=== PATIENT | male | born 1975 | race Caucasian/White ===

== ENCOUNTER 2024-04-21 09:59 | Inpatient (IN) | payer BC ==
[2024-04-21] VITALS (7 sets, daily range): BP systolic 145–161; BP diastolic 80–85; PULSE 66–74; TEMP 98–98.4
[~2024-04-21] VITALS: Ht 172.7 cm; Wt 197.9 kg
[~2024-04-21 09:59] MED LIST: 00186-0370-20 IH; AMOXICILLIN 50500 MG PO; APRESOLINE50 MG PO; COREG 6.256.25 MG/TA PO; DOXYCYCLINE HY100 MG PO; FLONASE NASAL S16 GM NS; HCTZ 25MG TAB25 MG PO; NO HOME MEDICATIONS; OMNICEF 300MG300 MG PO; PREDNISONE10 MG PO; PREDNISONE50 MG PO; PRINIVIL40 MG PO; TESSALON P100 MG/CAP PO; TOPROL XL 25MG25 MG PO; TOPROL XL 50MG50 MG PO; VENTOLIN0.09 MG IH; ZESTRIL 20MG TA20 MG PO; ZITHROMAX TRI-500 MG PO; ZYRTEC 10MG10 MG PO
[2024-04-21 11:04] LABS: COLLECTION METHOD CLEAN CATCH
[2024-04-21 11:20] LABS: BASO # 0.1 K/mm3 (0.0-0.2); BASO % 0.6 % (0.0-2.0); EOS # 0.3 K/mm3 (0.0-0.7); EOS % 2.6 % (0.0-4.0); GRAN # 8.7 K/mm3 (1.4-6.5); LYMPH # 0.9 K/mm3 (1.2-3.4); MEAN CELL VOLUME 67 fl (80.0-100.0); MEAN CORPUSCULAR HGB CONC 25 g/dl (33.0-37.0); MEAN PLATELET VOLUME 7.9 fl (7.4-10.4); MONO # 0.9 K/mm3 (0.1-0.6); MONO % 8.2 % (1.7-9.3); PLATELET COUNT 251 K/mm3 (130-400); RED BLOOD COUNT 4.47 M/mm3 (4.20-5.60); REDCELL DISTRIBUTION WIDTH-CV 23.8 % (11.5-14.5)
[2024-04-21 11:26] LABS: HEMOGLOBIN 7.5 g/dl (13.5-18.0); MEAN CORPUSCULAR HEMOGLOBIN 17 pg (27-31)
[2024-04-21 11:27] LABS: PH 5.5 (5.0-8.5); URINE APPEARANCE CLEAR (CLEAR/HAZY); URINE BLOOD NEGATIVE (NEGATIVE); URINE COLOR YELLOW (YELLOW); URINE GLUCOSE NEGATIVE (NEGATIVE); URINE KETONE NEGATIVE (NEGATIVE); URINE NITRATE NEGATIVE (NEGATIVE); URINE PROTEIN(semi-quant) TRACE (NEGATIVE)
[2024-04-21 11:28] LABS: ALBUMIN 3.5 g/dL (3.5-5.0); BILIRUBIN,TOTAL 1.9 mg/dL (0.2-1.2); CALCIUM 8.7 mg/dL (8.4-10.2); CREATININE, serum 1.14 mg/dL (0.72-1.25); POTASSIUM 3.1 mEq/L (3.5-4.5); TOTAL PROTEIN 7.3 g/dl (6.2-8.1)
[2024-04-21] MEDS ORDERED: Furosemide 100 MG/10 ML VIAL IV ONE (12:00)
[2024-04-21] MEDS ORDERED: AMOXICILLIN 8751 TAB PO (12:34)
[2024-04-21] MEDS ORDERED: LASIX 20MG TABL20 MG PO (12:35)
[2024-04-21] MEDS ORDERED: MOBIC15 MG PO (12:35)
[2024-04-21] MEDS ORDERED: NORVASC 5MG5 MG/TAB PO (12:35)
[2024-04-21] MEDS ORDERED: TYLENOL 500MG500 MG PO (12:38)
[2024-04-21] MEDS ORDERED: MUCINEX 60600 MG/TA1 PO (12:38)
[2024-04-21] MEDS ORDERED: Polyethylene Glycol 3350 17 GM PDS PO PRN (14:00)
[2024-04-21] MEDS ORDERED: Ondansetron 4 MG/2 ML VIAL IV PRN (14:00)
[2024-04-21] MEDS ORDERED: Acetaminophen 500 MG TAB PO PRN (14:00)
--- NOTE | 2024-04-21 14:40 | NUR ---
patient alert and oriented x4. patient on 2L 02/oxymask. Patient has swollen scrotum skin is dried/flaky. protective moisture ointment placed on it. Patient voided 300mls yellow clear urine. patient has generalized swelling. patient reports discomfort with positions to scrotum area. Patient IV on left antecubital c/d/i. Patient has acne/dark spots gaona on back, groin and panus area dark and stretchmarks. patient call light within reach. bed at lowest position.
[2024-04-21] MEDS ORDERED: Formoterol 20 MCG,Budesonide 0.5 MG IH SCH (19:00)
--- NOTE | 2024-04-21 20:50 | NUR ---
Patient resting in bed. Rates his pain at 2/10, states that is tolerable for him. Denies any needs at this time. Assessment complete. IV in right AC flushes easily without complications. Call light and personal items in reach. Bed in low position.
[2024-04-21] MEDS ORDERED: Patient's Own Medication Item IH PRN (21:00)
[2024-04-21] MEDS ORDERED: hydrALAZINE 25 MG TAB PO SCH (21:00)
[2024-04-22] VITALS (11 sets, daily range): BP systolic 124–165; BP diastolic 79–94; PULSE 64–79; TEMP 97.6–98.2
--- NOTE | 2024-04-22 01:30 | NUR ---
Spoke with hospitalsit Lakeshia about patient metoprolol is usually taken in the morning and here it is scheduled for evening. Recieved orders to change it to be taken in the morning per home regimen.
--- NOTE | 2024-04-22 05:30 | NUR ---
Patient up to bench. Rates pain at 3/10, prn pain meds given. Denies any needs this morning. States "I don't feel like the lasix are working how they're supposed to. My scrotum hasn't gotten any better." Call light and personal items in reach. Bed in low position.
[2024-04-22 07:02] LABS: BASO # 0.1 K/mm3 (0.0-0.2); BASO % 0.6 % (0.0-2.0); EOS # 0.3 K/mm3 (0.0-0.7); EOS % 3.1 % (0.0-4.0); GRAN # 7.2 K/mm3 (1.4-6.5); GRAN % 78.2 % (42.2-75.2); LYMPH # 0.7 K/mm3 (1.2-3.4); LYMPH % 7.9 % (20.0-51.0); MEAN CELL VOLUME 68 fl (80.0-100.0); MEAN CORPUSCULAR HGB CONC 25 g/dl (33.0-37.0); MEAN PLATELET VOLUME 8.3 fl (7.4-10.4); MONO # 0.9 K/mm3 (0.1-0.6); MONO % 9.2 % (1.7-9.3); PLATELET COUNT 239 K/mm3 (130-400); RED BLOOD COUNT 4.38 M/mm3 (4.20-5.60); REDCELL DISTRIBUTION WIDTH-CV 23.5 % (11.5-14.5)
[2024-04-22 07:06] LABS: HEMATOCRIT 29.7 % (42.0-52.0); HEMOGLOBIN 7.3 g/dl (13.5-18.0); MEAN CORPUSCULAR HEMOGLOBIN 17 pg (27-31)
[2024-04-22 08:15] LABS: CALCIUM 8.8 mg/dL (8.4-10.2); CREATININE, serum 1.19 mg/dL (0.72-1.25); MAGNESIUM 1.4 mg/dL (1.6-2.6); POTASSIUM 3.3 mEq/L (3.5-4.5)
--- NOTE | 2024-04-22 08:49 | NUR ---
PT SITTING ON BENCH UPON ENTERING. ASSSESSMENT DONE, MEDS GIVEN PER ORDER. PT REPORTS INTERMITTENT SCROTUM PAIN WITH MOVEMENT THAT IS CURRENTLY TOLERABLE, UNABLE TO GET PRN AT THIS TIME. PT ON 2L NASAL CANNULA. PT DENIES NEEDS. ULTRASOUND AT BEDSIDE FOR ECHO. PT UNABLE TO LAY IN BED AND POSITIONED ON SIDE OF BED FOR IMAGING WITH ASSISTANCE OF PCT. PT DENIES NEEDS. BED IN LOWEST POSITION, CALL LIGHT IN REACH
[2024-04-22] MEDS ORDERED: hydroCHLOROthiazide 25 MG TAB PO SCH (09:00)
[2024-04-22] MEDS ORDERED: Cetirizine 10 MG TAB PO SCH (09:00)
[2024-04-22] MEDS ORDERED: amLODIPine 5 MG TAB PO SCH (09:00)
--- NOTE | 2024-04-22 09:04 | NUR ---
welfare eligibility worker met with pt and his , Edna [phone] to discuss discharge planning. reports they live together in [place]. Pt sees Dr. Matthews for PCP needs and obtains medications from [facility] in with no difficulties. expresses anxieties if there is difficulty "after this hospital stay." SW encouraged her to use [facility] and inform HANNY Amaya upon discharge if they have further questions. She states Ashley does use [facility] for them. She reports pt is independent with ADLS and uses no DME, but is working on getting a CPAP following a sleep study. He does not have a DPOA-HC and is agreeable to being NOK. Pt reports no concerns with mobility and falls. He verified his insurance as [employer]. Discharge Plan: home
[2024-04-22] MEDS ORDERED: Potassium Bicarbonate/Citrate 20 MEQ Effervescent TAB PO SCH (10:15)
[2024-04-22] MEDS ORDERED: Furosemide 100 MG/10 ML VIAL IV ONE ×2 (10:15→14:45)
[2024-04-22] MEDS ORDERED: Furosemide 40 MG/4 ML VIAL IV ONE (10:15)
[2024-04-22] MEDS ORDERED: *Potassium Replacement Protocol MC SCH (10:15)
[2024-04-22] MEDS ORDERED: Magnesium Sulfate 4 GM/50 ML IV SOLN IV ONE (10:30)
[2024-04-22] MEDS ORDERED: Chlorhexidine 0.12% Oral Rinse 480 ML BOTTLE MM SCH (10:30)
[2024-04-22] MEDS ORDERED: AlOH3/diphen/Lidoc/MgOH2/Simet Oral Susp 10 ML UD Syringe PO SCH (12:00)
--- NOTE | 2024-04-22 19:17 | NUR ---
REPORT GIVEN TO ESTELA, RN
--- NOTE | 2024-04-22 20:30 | NUR ---
CALL PLACED TO [facility]. PATIENT HAS PROFOUND ANASCARA/GENERALIZED EDEMA AND SCROTUM IS SEVERELY EDEMENOUS. ACCURATE IXOs DIFFICULTY TO OBTAIN D/T PATIENT EXCORITATION AND DISCOMFORT. ESAU PLACED 16FR CUDET JEFFERSON AFTER MANY ATTEMPS. JEFFERSON IS PATENT AND DRAINING DARK YELLOW URINE. PATIENT CONTINUES TO COMPLAIN OF DISCOMFORT. TORB FOR LIDOCAINE PATCH AND 9MG MELATONIN GIVEN BY [facility]IST[facility]. PATIENT EDUCATED ON FLUID RESTRICTION. VS ARE WNL. CALL LIGHT WITHIN REACH.
--- NOTE | 2024-04-22 20:30 | NUR ---
PATIENT PLACED IN BARIATRIC BED WITH TRAPEZE BAR.
[2024-04-22] MEDS ORDERED: Lidocaine 4% Topical Patch TP SCH (23:19)
[2024-04-22] MEDS ORDERED: Melatonin 3 MG TAB PO SCH (23:20)
[2024-04-23] VITALS (12 sets, daily range): BP systolic 114–147; BP diastolic 59–84; PULSE 70–83; TEMP 97.6–98.3
--- NOTE | 2024-04-23 02:30 | NUR ---
CALL PLACED TO [facility]IST[facility]. PATIENT EXPERIENCING ANXIETY, STATES, "I FEEL ALL CONSTRAINED, CLAUSTROPHOBIC LIKE. I'M FREAKING OUT." PATIENT IS CURRENTLY NUDE, HAVING TAKEN ALL HIS CLOTHES OFF. VS ARE WNL. TORB FOR 0.5MG PO ONE TIME DOSE GIVEN.
[2024-04-23] MEDS ORDERED: LORazepam 0.5 MG TAB PO ONE (02:45)
--- NOTE | 2024-04-23 04:42 | NUR ---
CALL PLACED TO RT-BRE. PATIENT DESATED TO 86% ON 2L NC. TITRATED O2 UP TO 4L NOW 02 SAT 93%. RT TO ASSESS BEDSIDE.
--- NOTE | 2024-04-23 04:46 | NUR ---
RT ASSESSED PATIENT. O2 97% ON 4L, TITRATED BACK DOWN TO 1L. PATIENT HAS SUSPECTED MERARY, BUT HAS NOT BEEN ABLE TO MAKE IT TO SLEEP STUDY.
[2024-04-23 06:33] LABS: BASO # 0.1 K/mm3 (0.0-0.2); BASO % 0.5 % (0.0-2.0); EOS # 0.2 K/mm3 (0.0-0.7); EOS % 1.3 % (0.0-4.0); GRAN # 10.1 K/mm3 (1.4-6.5); LYMPH # 0.7 K/mm3 (1.2-3.4); LYMPH % 6.2 % (20.0-51.0); MEAN CELL VOLUME 68 fl (80.0-100.0); MEAN CORPUSCULAR HGB CONC 25 g/dl (33.0-37.0); MEAN PLATELET VOLUME 8.3 fl (7.4-10.4); MONO # 0.9 K/mm3 (0.1-0.6); MONO % 7.3 % (1.7-9.3); PLATELET COUNT 227 K/mm3 (130-400); REDCELL DISTRIBUTION WIDTH-CV 23.8 % (11.5-14.5); RETIC # 0.13 M/mm3 (0.02-0.16); RETIC % 2.9 % (0.5-3.52)
[2024-04-23 06:54] LABS: CREATININE, serum 1.13 mg/dL (0.72-1.25); POTASSIUM 3.5 mEq/L (3.5-4.5)
[2024-04-23 07:09] LABS: HEMATOCRIT 29.8 % (42.0-52.0); HEMOGLOBIN 7.5 g/dl (13.5-18.0); MEAN CORPUSCULAR HEMOGLOBIN 17 pg (27-31); RED BLOOD COUNT 4.38 M/mm3 (4.20-5.60)
[2024-04-23] MEDS ORDERED: Potassium Bicarbonate/Citrate 20 MEQ Effervescent TAB PO SCH (08:00)
--- NOTE | 2024-04-23 09:15 | NUR ---
PATIENT ALERT AND ORIENTED X4. PATIENT DROWSY TODAY. DENIES PAIN/ REPORTS GENERALIZED DISCOMFORT AND THAT BED IS NOT COMFORTABLE. ON 4.5L /. JEFFERSON DRAINING TEA COLOR URINE WITH SEDIMENT. SCROTAL AREA REMAINS SWOLLEN AND PANUS AREA. PITTING ON THE ABDOMEN.PATIENT CALL LIGHT WITHIN REACH. AT BEDSIDE. BED TO LOWEST POSITION.
[2024-04-23] MEDS ORDERED: Furosemide 40 MG TAB PO SCH (09:30)
[2024-04-23 09:33] LABS: ARTERIAL BLD GAS O2 SATURATION 89.2 % (92-100); ARTERIAL BLD GAS TCO2 CT 37.8; ARTERIAL BLOOD GAS BASE EXCESS 9.5 (-2-2); ARTERIAL BLOOD GAS HCO3 35.9 meq/L (22-26); ARTERIAL BLOOD GAS PO2 59.1 mmHg (80-100); ARTERIAL BLOOD GAS pH 7.38 (7.35-7.45)
--- NOTE | 2024-04-23 09:50 | NUR ---
ATTEMPTED FULL FACE BIPAP 12/6 25% PT UNABLE TO TOLERATE. WILL TRY NASAL MASK LATER. RN NOTIFIED
[2024-04-23] MEDS ORDERED: Lisinopril 20 MG TAB PO SCH ×2 (11:06→16:00)
--- NOTE | 2024-04-23 16:00 | NUR ---
Patient assisted with repositioning in bed. patient agreeable to elevate the scrotum to ease the pressure and help with the swelling. call light within reach. bed alarm within reach.
--- NOTE | 2024-04-23 20:30 | NUR ---
Initial shift assessment done- alert/oriented, standing at edge of bed with family helping, states just needed his back scratched-- back to bed, Mishra with susanne urine/sediment,, encouraged to elevate scrotum but pt states that increases his back pain, o2 at 1L/nc, denies SOB at this time.
[2024-04-24] VITALS (13 sets, daily range): BP systolic 137–158; BP diastolic 75–101; PULSE 68–80; TEMP 97.7–98.2
--- NOTE | 2024-04-24 00:30 | NUR ---
Pt states his INT is painful, r/ac INT does look red at insertion site - still flushes well but is painful, dc,d. Attempted to start another INT x1-- unable to get, called [facility] JARA and ok to leave out for the night --also pt states he is feeling anxious/panicky again like last night- order obtained for ativan po x1 now.
[2024-04-24] MEDS ORDERED: LORazepam 0.5 MG TAB PO ONE (00:45)
--- NOTE | 2024-04-24 05:53 | NUR ---
Pt has been resting on and off since the Ativan given, at times cannot get comfortable so stands at edge of bed to "stretch" his back- not wearing any clothes/gown, has been taking his p2 cannula on and off, sats have stayed 92% on RA.
[2024-04-24 07:58] LABS: BASO % 0.4 % (0.0-2.0); EOS # 0.2 K/mm3 (0.0-0.7); EOS % 2.4 % (0.0-4.0); GRAN # 7.6 K/mm3 (1.4-6.5); GRAN % 81.9 % (42.2-75.2); LYMPH # 0.7 K/mm3 (1.2-3.4); LYMPH % 7.2 % (20.0-51.0); MEAN CELL VOLUME 68 fl (80.0-100.0); MEAN CORPUSCULAR HGB CONC 24 g/dl (33.0-37.0); MEAN PLATELET VOLUME 8.2 fl (7.4-10.4); MONO # 0.7 K/mm3 (0.1-0.6); MONO % 7.6 % (1.7-9.3); PLATELET COUNT 227 K/mm3 (130-400); REDCELL DISTRIBUTION WIDTH-CV 23.6 % (11.5-14.5)
[2024-04-24 08:01] LABS: HEMATOCRIT 29.2 % (42.0-52.0); HEMOGLOBIN 7.1 g/dl (13.5-18.0); MEAN CORPUSCULAR HEMOGLOBIN 17 pg (27-31)
[2024-04-24 08:08] LABS: CALCIUM 9.8 mg/dL (8.4-10.2); CREATININE, serum 1.05 mg/dL (0.72-1.25); POTASSIUM 3.4 mEq/L (3.5-4.5)
[2024-04-24] MEDS ORDERED: Potassium Bicarbonate/Citrate 20 MEQ Effervescent TAB PO SCH (08:30)
--- NOTE | 2024-04-24 08:30 | NUR ---
UPON ENTERING ROOM PATIENT LAYING NAKED IN BED. PATIENT DENIES PAIN AT THIS TIME. PATIENT HELPED UP FROM BED TO SOFA AREA TO EAT BREAKFAST. JEFFERSON INPLACE DRAINING TEA COLOR URINE.PATIENT HAS NO IV PLACED AT THIS TIME PROVIDER IS AWARE.PATIENT CALL LIGHT WITHIN REACH. BED AT LOWEST POSITION.
--- NOTE | 2024-04-24 11:22 | NUR ---
Laundromat Manager spoke with Hospitalist about ordering PT/OT to assess for any discharge needs.
[2024-04-24] MEDS ORDERED: LORazepam 1 MG TAB PO ONE (16:00)
--- NOTE | 2024-04-24 19:48 | NUR ---
PATIENT RESTING IN BED WITH AT BEDSIDE. REPORTING PAIN IN EPIGASTRIC REGION, 2 TUMS PROVIDED AT THIS TIME. O2 IN USE AT 2L VIA NASAL CANNULA. CALL LIGHT WITIHN REACH. BED IS LOCKED AND IN LOW POSITION.
[2024-04-25] VITALS (7 sets, daily range): BP systolic 137–176; BP diastolic 81–109; PULSE 69–74; TEMP 97.9–98.3
--- NOTE | 2024-04-25 04:39 | NUR ---
INFORMED RT THAT PATIENT'S OXYGEN SATURATION WAS 79%. PATIENT HAS BEEN TAKING HIS OXYGEN ON AND OFF ALL NIGHT. AGAIN ATTEMPTED TO REEDUCATE ON IMPORTANCE OF KEEPING HIS NASAL CANNULA IN PLACE.
--- NOTE | 2024-04-25 05:47 | NUR ---
PT HAS TAKEN CPAP ON AND OFF THROUGHOUT THE NIGHT. RT NOTIFIED AROUND 0445 PT WAS SATTING IN LOW 80'S. UPON ENTERING ROOM PT IS OFF THE CPAP WITH NC IN NOSE. NC IS NOT PLUGGED IN TO O2 DUE TO PT REQUIRING O2 BLEED IN THROUGH CPAP. O2 WYE PLACED IN ROOM AND PT HOOKED BACK UP TO 2L VIA NC.
--- NOTE | 2024-04-25 08:15 | NUR ---
patient alert and oriented x4. patient denies pain at this time. patient nasal canula off, patient re-educated on the importance of compliance with keep on his oxygen nasal canula and the risk of not wearing it. patient verbalized understanding and allowed it to be placed back on. Patient shift assessment completed. patient helped out of bed and assisted to move to window bench to eat breakfast. patient chavira inplace draining yellow urine. patient right ac site red and white/yellow ring around where iv used to be. cleaned and bandaid placed. Patient placed on 2L/nc. call light within reach. bed at lowest position.
[2024-04-25 09:44] LABS: BASO # 0.1 K/mm3 (0.0-0.2); BASO % 0.7 % (0.0-2.0); EOS # 0.3 K/mm3 (0.0-0.7); EOS % 3.2 % (0.0-4.0); GRAN % 78.3 % (42.2-75.2); LYMPH # 0.8 K/mm3 (1.2-3.4); LYMPH % 8.5 % (20.0-51.0); MEAN CELL VOLUME 68 fl (80.0-100.0); MEAN CORPUSCULAR HGB CONC 25 g/dl (33.0-37.0); MEAN PLATELET VOLUME 7.8 fl (7.4-10.4); MONO # 0.8 K/mm3 (0.1-0.6); MONO % 8.7 % (1.7-9.3); PLATELET COUNT 207 K/mm3 (130-400); RED BLOOD COUNT 4.34 M/mm3 (4.20-5.60); REDCELL DISTRIBUTION WIDTH-CV 23.5 % (11.5-14.5)
[2024-04-25 09:53] LABS: HEMATOCRIT 29.4 % (42.0-52.0); HEMOGLOBIN 7.3 g/dl (13.5-18.0); MEAN CORPUSCULAR HEMOGLOBIN 17 pg (27-31)
[2024-04-25] MEDS ORDERED: FLOMAX 0.40.4 MG/CAP PO (10:00)
[2024-04-25] MEDS ORDERED: NORVASC 10MG10 MG PO (10:01)
[2024-04-25] MEDS ORDERED: LASIX 40MG TABL40 MG PO (10:02)
[2024-04-25 10:05] LABS: CALCIUM 9.2 mg/dL (8.4-10.2); CREATININE, serum 1.02 mg/dL (0.72-1.25); MAGNESIUM 1.7 mg/dL (1.6-2.6); POTASSIUM 3.4 mEq/L (3.5-4.5)
[2024-04-25] MEDS ORDERED: amLODIPine 5 MG TAB PO ONE (10:15)
[2024-04-25] MEDS ORDERED: OXYGEN NASAL.CANN ×2 (10:23→12:25)
--- NOTE | 2024-04-25 11:00 | NUR ---
patient chavira catheter removed. patient tolerated it well. pericare provided. call light within reach. bed at lowest position.
--- NOTE | 2024-04-25 12:20 | NUR ---
patient voided. denied pain or difficulty urinating. at bedside. call light within reach, bed at lowest position.
--- NOTE | 2024-04-25 13:20 | NUR ---
patient discharge instructions give. at bedside. patient verbalized understanding. denies questions. patient wanted to speak to provider about IV site spot prior to discharge. provider notified. call light within reach.
[2024-04-25] MEDS ORDERED: DOXYCYCLINE 10100 MG PO (13:42)
--- NOTE | 2024-04-25 14:26 | NUR ---
patient escorted out of unit by PCT.
--- NOTE | 2024-04-25 16:30 | NUR ---
Palletiser Operator was notified that patient will need home oxygen set up for discharge today. HANNY met with patient and his , Edna who selected [facility]. HANNY sent referral and order via secure email. Oxygen was delivered up to patient's room. Patient's , Edna inquired about a bariatric rollator, however stated it wasn't something they needed in order to leave today. HANNY contacted [facility] and unfortunately, their bariatric rollator cannot accomodate patient's current weight. [facility] stated they can special order one if desired. HANNY faxed prescription and provided contact information to Edna for follow up if she would like to order one. [facility] advised they cannot bill insurance but the prescription would take off tax.
[2024-05-02] MEDS ORDERED: K-TAB20 PO (13:13)
[2024-05-02] MEDS ORDERED: LASIX 40MG TABL40 MG PO (14:23)
== END 2024-04-25 14:29 | disposition home or self-care (01) | DRG 729 ==
LOC: COL.ER 09:59 → MEDICAL 12:02 → COL.ER 12:02 → MEDICAL 04-24 10:40
PROVIDERS: Internal Medicine; Physician Assistant; ADMIT Internal Medicine
DX: N50.89 Other specified disorders of the male genital organs (principal); J96.02 Acute respiratory failure with hypercapnia; E66.2 Morbid (severe) obesity with alveolar hypoventilation; R33.9 Retention of urine, unspecified; D64.9 Anemia, unspecified; E87.6 Hypokalemia; E83.42 Hypomagnesemia; I10 Essential (primary) hypertension; J45.909 Unspecified asthma, uncomplicated; Z68.36 Body mass index [BMI] 36.0-36.9, adult
CPT/HCPCS: J1650; J1940; J3475

== ENCOUNTER 2024-05-16 08:27 | Day surgery (SDC) | payer BC ==
[~2024-05-16] VITALS: Ht 172.7 cm; Wt 198.6 kg
[~2024-05-16 08:27] MED LIST changes: +AMOXICILLIN 8751 TAB PO; +DOXYCYCLINE 10100 MG PO; +FLOMAX 0.40.4 MG/CAP PO; +K-TAB20 PO; +LASIX 20MG TABL20 MG PO; +LASIX 40MG TABL40 MG PO; +LR 1,000 ML IV SCH; +MOBIC15 MG PO; +MUCINEX 60600 MG/TA1 PO; +NORVASC 10MG10 MG PO; +NORVASC 5MG5 MG/TAB PO; +OXYGEN NASAL.CANN; +Ondansetron 4 MG/2 ML VIAL IV PRN; +TYLENOL 500MG500 MG PO
[2024-05-16] MEDS ORDERED: Glycopyrrolate 0.2 MG/ML 1 ML VIAL ONE (10:13)
[2024-05-16] MEDS ORDERED: Lidocaine PF 2% (20 MG/ML) 5 ML VIAL ONE (10:13)
[2024-05-16] MEDS ORDERED: Succinylcholine PF 200 MG/10 ML SYRINGE IV ONE (10:13)
[2024-05-16 10:28] VITALS: BP 144/90; PULSE 74; TEMP 97.3
[2024-05-16 11:00] VITALS: BP 143/78; PULSE 74
[2024-05-16 11:15] VITALS: BP 142/86; PULSE 75
--- NOTE | 2024-05-16 11:57 | NUR ---
1100- PT RETURNS TO BAY 5 FROM EGD/COLONSCOPY PROCEDURES. REQUESTING TO REMAIN ON ENDO CART THIS IS MOST COMFORTABLE. VS OBTAINED. 2L NC WHICH IS BASELINE. REQUESTING FOOD AND SOMETHING TO DRINK. MUFFIN, JELLO AND SPRITE PROVIDED. 1115- TOLERATING FOOD AND DRINK. NO COMPLAINTS OF NAUSEA OR PAIN. REQUESTING TO DISCHARGE. 1122- IV REMOVED PER ORDER. 1138-DISCHARGE INSTRUCTIONS COMPLETED WITH PT AND AT BEDSIDE. ANSWERED ALL QUESTIONS IN FULL. ASSISTED PT WITH DRESSING. 1141- PT DISCHARGED HOSPTIAL VIA WHEELCHAIR TO PRIVATE VEHICLE DRIVEN BY .
== END 2024-05-16 11:41 ==
LOC: SDCO 08:27
DX: D50.0 Iron deficiency anemia secondary to blood loss (chronic) (principal); E66.01 Morbid (severe) obesity due to excess calories; F17.290 Nicotine dependence, other tobacco product, uncomplicated; Z68.44 Body mass index [BMI] 60.0-69.9, adult
CPT/HCPCS: J2704; J7120